=== PATIENT | female | born 1960 | race Caucasian/White ===

== ENCOUNTER 2017-06-15 12:55 | Outpatient (CLI) | payer OTHER ==
[2017-06-15 13:48] LABS: Blood Urea Nitrogen 13 mg/dL (7-17)
--- NOTE | 2017-06-15 16:27 | Cat Scan Report ---
FINAL REPORT PROCEDURE: CT ABDOMEN PELVIS WO/W CON TECHNIQUE: Consent was obtained. Oral contrast was administered and axial sections obtained through the abdomen and pelvis. IV contrast was administered and sections reperformed. Delayed axial sections as well as postcontrast coronal and sagittal reformatted images were also submitted for review. HISTORY: ABNORMAL FINDINGS IN URINE COMPARISON: None FINDINGS: The lung bases are clear. A couple of hepatic cysts are present the largest of which is at the right lateral aspect of the dome 1.4 x 1.3 centimeters. The gallbladder, spleen, pancreas, adrenal glands, and kidneys are normal in appearance. No WEBBING WEAVER abnormality is seen. The urinary bladder is unremarkable. There is small dependent free fluid in the pelvis. There is no abdominal aortic aneurysm or dissection. Mild calcific atherosclerosis is present. There is no bowel obstruction or gross focal bowel lesion. The appendix is normal. There is no lymphadenopathy. No acute osseous abnormality is seen. IMPRESSION: Small dependent free fluid in the pelvis. A couple of hepatic cysts.
== END 2017-06-15 12:56 | disposition home or self-care (01) ==
LOC: CT 12:55
PROVIDERS: ATTEND Internal Medicine
DX: K76.89 Other specified diseases of liver (principal); R82.99 Other abnormal findings in urine; I70.0 Atherosclerosis of aorta
CPT/HCPCS: 36415; 74178; 82565; 84520; Q9967

== ENCOUNTER 2018-01-04 10:19 | Outpatient (CLI) | payer OTHER ==
--- NOTE | 2018-01-04 15:02 | Mammography Report ---
BILATERAL DIGITAL SCREENING MAMMOGRAM with CAD: 01/04/18 10:19:00 CLINICAL: Routine screening.Status post left benign stereotactic breast biopsy for calcifications 08/19/15 COMPARISON: 08/19/15 left mammogram and J [facility] 12/18/14 and 02/26/15 mammograms FINDINGS: There are a few bilateral scattered areas of fibroglandular density.Left upper outer biopsy clip and no residual calcifications at the clip.No mass, architectural distortion or suspicious calcifications. IMPRESSION: No mammographic evidence of malignancy. BI-RADS CATEGORY: 2 - - Benign And RECOMMENDATION: Routine mammographic screening in one year. COMMENT: Patient follow-up letters are generated by our [address] application.
== END 2018-01-04 10:20 | disposition home or self-care (01) ==
LOC: SPVWC 10:19
PROVIDERS: ATTEND Family Medicine
DX: Z12.31 Encounter for screening mammogram for malignant neoplasm of breast (principal)
CPT/HCPCS: 77067